=== PATIENT | female | born 1990 | race Caucasian/White ===

== ENCOUNTER 2020-03-21 21:56 | Emergency (ER) | payer OTHER ==
[2020-03-21 22:09] VITALS: BMI 35.4
--- NOTE | 2020-03-22 01:19 | PDOC ---
History of Present Illness - General Chief Complaint: Injury Stated Complaint: 28 W PREG/NOSE BLEEDING History Source: Patient Exam Limitations: No Limitations - History of Present Illness Initial Comments: 03/22/20 02:14 29 yo F with approximately 29 weeks GA presents to the emergency department for evaluation of nosebleed that occurred this morning with self resolution. per the patient, she states she had a quantity of bright red blood approximately 5 cc from her nose and mouth without trauma in the mouth. Denies self biting. Denies manual manipulation of the nares bilaterally. Per the patient, she denies the following: fevers, chills, chest pain, nausea, vomiting, headaches, visual disturbance, neck pain, abdominal pain, vaginal bleeding, vaginal discharge, diarrhea, and hematochezia. She is followed for care and denies current issues with her next appointment within 1 week. She states she had an ultrasound early in the to confirm a single intrauterine . Allergies: NKDA Past History - Medical History COPD: No - Reproductive History Is Patient Now?: Yes - Psycho-Social/Smoking History Smoking History: Never smoked - Substance Abuse Hx (Audit-C & DAST Scrn) How often the patient has a drink containing alcohol: Never Score: In Men: 4 or > Positive; In Women: 3 or > Positive: 0 Screen Result (Pos requires Nsg. Audit-10AR): Negative In the last yr the pt used illegal drug/Rx for NonMed reason: No Score: Yes response is considered Positive: 0 Screen Result (Positive result requires Nsg. DAST-10): Negative Review of Systems - Review of Systems Able to Perform ROS?: Yes Is the patient limited Austrian proficient: No Constitutional: No: Chills, Diaphoresis, Fever, Weakness HEENTM: No: Eye Pain, Ear Pain, Nose Pain, Throat Pain Respiratory: No: Cough, Shortness of Breath Cardiac (ROS): No: Chest Pain, Edema, Palpitations ABD/GI: No: Diarrhea, Nausea, Rectal Bleeding, Vomiting : No: Dysuria, Hematuria Musculoskeletal: No: Back Pain Integumentary: No: Rash Neurological: No: Headache, Dizziness Psychiatric: No: Change in Appetite Hematologic/Lymphatic: No: Anemia *Physical Exam - Vital Signs Last Vital Signs Temp Pulse Resp BP Pulse Ox 97.4 F L 93 H 19 111/61 99 03/21/20 22:03 10/07/20 22:03 03/21/20 22:03 03/21/20 22:03 03/21/20 22:03 - Physical Exam General Appearance: Yes: Nourished, Appropriately Dressed. No: Apparent Distress, Intoxicated HEENT: positive: EOMI, JESSICA, Normal Voice, Symmetrical, Pharynx Normal, Hearing Grossly Normal, Other (no lesions noted in the nares. no dried blood in the nares or oropharynx. ). negative: Pale Conjunctivae, Scleral Icterus (R), Scleral Icterus (L), Muffled/Hoarse voice, Pharyngeal Erythema, Tonsillar Exudate, Tonsillar Erythema, Nasal Congestion, Rhinorrhea, Excessive drooling Neck: positive: Trachea midline, Supple. negative: Tender, Lymphadenopathy (R), Lymphadenopathy (L) Respiratory/Chest: positive: Lungs Clear, Normal Breath Sounds. negative: Chest Tender, Respiratory Distress, Accessory Muscle Use Cardiovascular: positive: Regular Rhythm, Regular Rate, S1, S2. negative: Systolic Murmur Gastrointestinal/Abdominal: positive: Normal Bowel Sounds, Flat, Soft, Other (gravid uterus). negative: Tender, Distended, Guarding, Rebound Lymphatic: negative: Adenopathy Musculoskeletal: positive: Normal Inspection. negative: CVA Tenderness, Vertebral Tenderness Extremity: positive: Normal Capillary Refill, Normal Inspection, Normal Range of Motion. negative: Tender, Swelling, Calf Tenderness Integumentary: positive: Normal Color, Dry, Warm. negative: Rash, Swelling Neurologic: positive: Fully Oriented, Alert, Normal Mood/Affect Medical Decision Making - Medical Decision Making 29 yo F with approximately 29 weeks GA presents to the emergency department for evaluation of nosebleed that occurred this morning with self resolution. Initial vitals: Initial Vital Signs Temp Pulse Resp BP Pulse Ox 97.4 F L 93 H 19 111/61 99 03/21/20 22:03 03/21/20 22:03 03/21/20 22:03 03/21/20 22:03 03/21/20 22:03 Work up: patient presents to the emergency department with a resolved nose bleed. Per the patient, she states she feels back to baseline and has no symptomatic complaints. vitals stable, no signs of lesions on physical exam, and no symptomatic complaints. no further work up needed at this time patient's bed side US of the fetus has adequate FHR with movements witnessed. Patient to be discharged. given return precautions and the patient states she will follow up with her OBGYN within the next week. Discharge - Discharge Information Problems reviewed: Yes Clinical Impression/Diagnosis: Epistaxis, Condition: Good Disposition: HOME - Admission No - Follow up/Referral Referrals: Tessa Xiong MD [Staff Physician] - - Patient Discharge Instructions Additional Instructions: You were seen in the emergency department for the evaluation of your nose bleed. On physical examination, no active source of bleeding was noted. Your bedside ultrasound shows an adequate fetus heart rate. Please follow up with your obgyn doctor or the one referred to you within 72 hours after discharge for follow up care and management. Please return to the emergency department if you have worsening symptoms or new concerning symptoms. Thank you. Lo vieron en el departamento de emergencias para la evaluacin de ngo hemorragia nasal. En el examen fsico, no se observ cassandra chris activa de hemorragia. Ngo ultrasonido de cabecera muestra cassandra frecuencia cardaca adecuada. Alena un seguimiento con ngo mdico obgyn o con el que se le refiri dentro de las 72 horas posteriores al jutso para recibir atencin y control de seguimiento. Regrese al departamento de emergencias si tiene sntomas que empeoran o nuevos sntomas preocupantes. Kyleigh. Print Language: SPA - Post Discharge Activity
--- NOTE | 2020-03-22 02:18 | PDOC ---
Attending Attestation - Resident Resident Name: SilvanoFam - ED Attending Attestation I have performed the following: I have examined & evaluated the patient, The case was reviewed & discussed with the resident, I agree w/resident's findings & plan, Exceptions are as noted - HPI HPI: 03/22/20 02:14 29 yo F 29 weeks p/w episode of nosebleed this evening resolved on its own. States she was also spitting out blood at the time, about a teaspoon in total. Denies digital manipulation of nares. Denies any trauma. Denies abd pain, n/v, cough, CP or SOB. Has been getting care and denies any issues with the thus far. - Physicial Exam PE: 03/22/20 02:15 General: well appearing HEENT: NCAT, EOMI, nares patent without any bleeding, no intraoral lesions - Medical Decision Making 03/22/20 02:16 29 yo F with episode of epistaxis now resolved, unremarkable physical exam, vitals unremarkable, no indication for additional workup at this time. 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 The [employer] of the Department of Health and Human Services has declared, pursuant to the Public Health Service Act 319F-3 (42 U.S.C. 247d-6d), that a covered persons activities related to medical countermeasures against COVID-19 will be immune from liability under Federal and State law. Discharge - Discharge Information Problems reviewed: Yes Clinical Impression/Diagnosis: Epistaxis Condition: Good Disposition: HOME - Follow up/Referral - Patient Discharge Instructions - Post Discharge Activity
[2020-03-22 02:43] VITALS: BP 99/62; PULSE 89; TEMP 98.2
--- OUTSIDE RECORDS SUMMARY | 2020-03-22 06:32 | XMS ---
:1990 Author Organization [facility] Support Name Relationship Address Phone UE Unavailable Unavailable Unavailable MAGNOLIA GUAN [place] [address] Re-disclosure Warning The records that you are about to access may contain information from federally- assisted alcohol or drug abuse programs. If such information is present, then the following federally mandated warning applies: This information has been disclosed to you from records protected by federal confidentiality rules (42 CFR part 2). The federal rules prohibit you from making any further disclosure of this information unless further disclosure is expressly permitted by the written consent of the person to whom it pertains or as otherwise permitted by 42 CFR part 2. A general authorization for the release of medical or other information is NOT sufficient for this purpose. The Federal rules restrict any use of the information to criminally investigate or prosecute any alcohol or drug abuse patient.The records that you are about to access may contain highly sensitive health information, the redisclosure of which is protected by Article 27-F of the [facility] Public Health law. If you continue you may haveaccess to information: Regarding HIV / AIDS; Provided by facilities licensed or operated by the [facility] Office of Mental Health; or Provided by the [facility] Office for People With Developmental Disabilities. If such information is present, then the following [facility] mandated warning applies: This information has been disclosed to you from confidential records which are protected by state law. State law prohibits you from making any further disclosure of this information without the specific written consent of the person to whom it pertains, or as otherwise permitted by law. Any unauthorized further disclosure in violation of state law may result in a fine or detention sentence or both. A general authorization for the release of medical or other information is NOT sufficient authorization for further disclosure. Insurance Providers Payer name Policy type Policy ID Covered Covered constitution party's Policy P gail / Coverage constitution party ID relationship to [employer] Inf ormation type ibarra [employer] [id number] SP [id number] Results ID Date Data Source [id number] 01/14/2020 02:40:00 PM EDT [facility] Name Value Range Interpretation Code Description Data Nichelle rce(s) Supporting Document(s ) SARS-COV-2 [facility] QL JOSÉ+PROBE This lab was ordered by [facility] 2164 and rep orted by [facility]. Procedure
== END 2020-03-22 02:50 | disposition home or self-care (01) ==
LOC: JER 21:56
DX: R04.0 Epistaxis (principal); Z3A.28 28 weeks gestation of pregnancy
CPT/HCPCS: 99282-25